=== PATIENT | female | born 1980 | race Caucasian/White ===

== ENCOUNTER 2019-03-14 12:49 | Emergency (ER) | payer MEDICAID ==
[~2019-03-14] VITALS: Wt 70.0 kg
[2019-03-14 12:51] VITALS: BP 159/87; PULSE 90; RESP 18
[2019-03-14] MEDS ORDERED: IBUP-1542 PO (13:18)
[2019-03-14] MEDS ORDERED: MED4DP PO (13:18)
--- NOTE | 2019-03-14 13:21 | ERD ---
ER Documentation Chief Complaint Chief Complaint RIGHT ANKLE SWELLING, NO TRAUMA HPI 38-year-old female presenting to the ED for right ankle swelling. Patient denies any trauma to the extremity and states that she has swelling at night and it is only in the right ankle. She currently is not having any swelling right now. Patient denies any pain. Patient is able to ambulate without difficulty. Patient denies history of diabetes or hypertension. Patient states she is not allergic to any medications. Patient has no history of DVTs. ROS All systems reviewed and are negative except as per history of present illness. Medications Home Meds Active Scripts Ibuprofen* (Motrin*) 600 Mg Tab, 600 MG PO Q6, #30 TAB Prov:GAVINO ESTEBAN PA-C 03/14/19 Methylprednisolone* (Medrol* DOSE PACK) 4 Mg/Dose-Pack Tab.ds.pk, 4 MG PO . DIRECTED for 10 Days, PACKET Prov:GAVINO ESTEBAN PA-C 03/14/19 PMhx/Soc Medical and Surgical Hx: pt denies Medical Hx, pt denies Surgical Hx History of Surgery: No Hx Neurological Disorder: No Hx Respiratory Disorders: No Hx Cardiac Disorders: No Hx Psychiatric Problems: No Hx Miscellaneous Medical Probl: No Hx Alcohol Use: No Hx Substance Use: No Hx Tobacco Use: No Smoking Status: Never smoker FmHx Family History: No diabetes, No coronary disease, No other Physical Exam Vitals Vital Signs Date Temp Pulse Resp B/P (MAP) Pulse Ox O2 O2 Flow FiO2 Time Delivery Rate 03/14/19 98.1 90 18 159/87 99 12:51 (111) Physical Exam Const: No acute distress Resp: Clear to auscultation bilaterally Cardio: Regular rate and rhythm, no murmurs Abd: Soft, non tender, non distended. Normal bowel sounds Skin: No petechiae or rashes Back: No midline or flank tenderness Ext: No deformity, swelling, erythematous, no neurovascular deficits, no pain on palpation and patient has full range of motion of the extremity Procedures/MDM Medical decision making: Patient's 38-year-old female presented to ED for right ankle swelling. Patient denies any trauma. Patient states she has no pain in the extremity and that the swelling is not currently there. Patient states that the swelling tends to be at night and improves in the morning. Patient has no difficulty ambulating and has full range of motion in the extremity. Patient has good pulse motor sensation in the extremity and denies history of diabetes. Patient has no calf tenderness or swelling. The patient cannot recall any event that aggravated the foot. The patient's vitals are all within normal limits. I advised the patient we can take an x-ray of the foot but it is only going to show if there was a fracture but at this time I have low suspicion for fracture based on physical exam and history of presenting illness. Patient feels comfortable without receiving an x-ray and wants to try NSAIDs compression socks ice and rest over the next few days. At this time I have low suspicion for compartment syndrome, DVT, osteomyelitis, fracture, sprain, neurovascular injury. I have for the patient acetaminophen for pain but she states she has no pain. I offered to splint the extremity for the patient but she states she does not want that I offered the patient crutches she needs help ambulating without bearing weight on the extremity. The patient refused and states that she has no trouble ambulating on the foot. Advised the patient if symptoms do not improve she be seen by an orthopedic work butcher. I also stated the patient should follow- up with her primary care provider in 1 to 2 days regarding this visit. I advised patient if symptoms worsen she can return to ER any time Prescription for home: Medrol Dosepak Motrin I have discussed with the patient proper use and common side effects to expert with the medication . I advised the patient/family to speak with the pharmacist dispensing the medication to be advised of any potential drug interactions with other medication or supplements they may be taking. Discharge: At this time, patient is stable for discharge and outpatient management. I have instructed the patient to follow-up with his\her primary care physician in 1 to 2 days. I have discussed with the patient the possibility of needing to see a specialist for further work-up and imaging studies if symptoms persist. I have instructed the patient to promptly return to the ER for any new or worsening symptoms including increased pain, fever, nausea, vomiting, weakness or LOC. The patient and\or family expressed understanding of and agreement with this plan. All questions were answered. Home care instructions were provided. Disclaimer: Inadvertent spelling and grammatical errors are likely due to EHR\dictation software use and do not reflect on the overall quality of patient care. Also, please note that the electronic time recorded on the note does not necessarily reflect the actual time of the patient encounter. Departure Diagnosis: Primary Impression: Swelling of right foot Condition: Stable Patient Instructions: Foot Surgery: [facility] Referrals: [facility] YOU HAVE RECEIVED A MEDICAL SCREENING EXAM AND THE RESULTS INDICATE THAT YOU DO NOT HAVE A CONDITION THAT REQUIRES URGENT TREATMENT IN THE EMERGENCY DEPARTMENT. FURTHER EVALUATION AND TREATMENT OF YOUR CONDITION CAN WAIT UNTIL YOU ARE SEEN IN YOUR DOCTORS OFFICE WITHIN THE NEXT 1-2 DAYS. IT IS YOUR RESPONSIBILITY TO MAKE AN APPOINTMENT FOR FOLOW-UP CARE. IF YOU HAVE A PRIMARY DOCTOR --you should call your primary doctor and schedule an appointment IF YOU DO NOT HAVE A PRIMARY DOCTOR YOU CAN CALL OUR PHYSICIAN REFERRAL HOTLINE AT IF YOU CAN NOT AFFORD TO SEE A PHYSICIAN YOU CAN CHOSE FROM THE FOLLOWING [facility] [address] [facility]. [facility] [address] [facility] [facility] [place] [address] [facility] [address] [facility] [address] [facility]. [facility] [address] [facility]. [facility] YOU HAVE RECEIVED A MEDICAL SCREENING EXAM AND THE RESULTS INDICATE THAT YOU DO NOT HAVE A CONDITION THAT REQUIRES URGENT TREATMENT IN THE EMERGENCY DEPARTMENT. FURTHER EVALUATION AND TREATMENT OF YOUR CONDITION CAN WAIT UNTIL YOU ARE SEEN IN YOUR DOCTORS OFFICE WITHIN THE NEXT 1-2 DAYS. IT IS YOUR RESPONSIBILITY TO MAKE AN APPOINTMENT FOR FOLOW-UP CARE. IF YOU HAVE A PRIMARY DOCTOR --you should call your primary doctor and schedule and appointment IF YOU DO NOT HAVE A PRIMARY DOCTOR YOU CAN CALL OUR PHYSICIAN REFERRAL HOTLINE AT . IF YOU CAN NOT AFFORD TO SEE A PHYSICIAN YOU CAN CHOSE FROM THE FOLLOWING [facility] INSTITUTIONS: [facility] [address] [place] [address] [facility] [address] [place] [address] [facility] [address] [place] [address] [facility] 7 a.m.- 11 p.m. Every Day of the Week NO APPOINTMENT OR AUTHORIZATION NEEDED Additional Instructions: Specialist:Usted tiene aron condicin mdica que requiere que teresa a un especialista dentro de los prximos 1-2 link.POR FAVOR,CON CASTILLO SEGUIMIENTO DE PRIMARIA PHSICIAN refferal. SI USTED NO TIENE UN MDICO GENERAL Y / O USTED NO PUEDE PAGAR minda a un mdico,los siguientes bullock RECURSOS sido suministrado a usted. ES CASTILLO RESPONSABILIDAD PARA SER VISTOS POR EL ESPECIALISTA:Visite a castillo mdico maana para un EXAMEN.Regrese a estas instalaciones si no se mejora lalitha esperbamos o lalitha le dijimos. GAVINO ESTEBAN PA-C Mar 14, 2019 13:21
== END 2019-03-14 13:31 | disposition home or self-care (01) ==
LOC: FTE 12:49
DX: M79.89 Other specified soft tissue disorders (principal)
CPT/HCPCS: 99283